=== PATIENT | female | born 1945 | race American Indian/Alaskan Native ===

== ENCOUNTER 2016-12-12 12:13 | Outpatient (CLI) | payer MEDICARE ==
--- NOTE | 2016-12-12 15:01 | Mammography Report ---
BILATERAL DIGITAL SCREENING MAMMOGRAM with CAD and RIGHT BREAST ULTRASOUND: 12/12/16 CLINICAL: Right breast mass. COMPARISON:None. FINDINGS: The breasts are extremely dense which limits the sensitivity of mammography. A right outer posterior mass with suspicious calcifications is identified on both views. The mass is partially included and measures at least 4 cm in diameter. It correlates with the palpable mass. There is architectural distortion associated with the mass.The left breast is negative.. Ultrasound of the right breast (including all four quadrants and the retroareolar area) was performed and demonstrated a solid heterogeneous hypoechoic mass at 8 o'clock 6 cm from the nipple. It measures at least 3.6 x 2.8 x 2.9 cm. A second mass at 10 o'clock 8 cm from the nipple measures 1.3 x 1.0 x 0.4 cm as. Ultrasound of the right axilla demonstrates at least one small suspicious lymph node with no central fat. IMPRESSION: A highly suspicious palpable right breast mass measuring at least 3.6 cm and possibly larger. One suspicious right axillary lymph node. Negative left breast. BI-RADS CATEGORY: 5 - - Highly Suggestive of Malignancy RECOMMENDATION: Ultrasound guided needle core biopsy of the right breast and ultrasound guided needle core biopsy of a right axillary lymph node. I discussed the findings and the recommendation for needle core biopsy with the patient and her niece at the time of the examination. ACR BI-RADS MAMMOGRAPHIC CODES: 0 = Needs additional imaging evaluation; 1 = Negative; 2 = Benign; 3 = Probably benign; 4 = Suspicious; 5 = Malignant; 6 = Known biopsy-proven malignancy COMMENT: 1. Dense breast tissue, i.e., adenosis, fibrocystic changes, etc., may obscure an underlying neoplasm. 2. Approximately 10% of cancers are not detected with mammography. 3. A negative mammography report should not delay biopsy if a clinically suspicious mass is present. COMMENT: Patient follow-up letters are generated by our [employer] application.
--- NOTE | 2016-12-12 15:02 | Mammography Report ---
BONE DEXA:12/12/16 12:13:00 CLINICAL: Postmenopausal. No comparison. TECHNIQUE: Two site bone DEXA performed on an Hologic scanner. FINDINGS: The average BMD of the lumbar spine L1-L4 is 0.923g/cm squared with a T-score of -2.1 and a Z-score of +0.5. The average BMD of the left hip is 0.681g/cm squared with a T-score of -2.2 and a Z-score of -1.0. IMPRESSION: WHO classification: Osteopenia with increased fracture risk based on spine and left hip measurements. RECOMMENDATION: Clinical correlation and routine screening. DEFINITIONS: BMD = Bone Mineral Density T-score = BMD related to mean peak bone mass of young adult (mean expressed in Standard Deviation) Z-score = Age matched BMD expressed in SD World Health Organization (WHO) Diagnostic Criteria Normal T-score > -1 SD Osteopenia T-score between -1 and -2.4 SD Osteoporosis T-score -2.5 SD or below NOTE: BMD is not the only risk factor for fracture. One should also consider factors such as the patient's age, risk of falling, previous osteoporotic fracture, family history of osteoporotic fractures, current smoker, and low body weight. Z-scores are not calculated if >80 years of age.
== END 2016-12-12 12:14 | disposition home or self-care (01) ==
LOC: SPVWC 12:13
PROVIDERS: ATTEND Family Medicine
DX: Z12.31 Encounter for screening mammogram for malignant neoplasm of breast (principal); M85.88 Other specified disorders of bone density and structure, other site; N63.10 Unspecified lump in the right breast, unspecified quadrant; Z78.0 Asymptomatic menopausal state
CPT/HCPCS: 76641; 77080; G0202; 77067

== ENCOUNTER 2016-12-23 13:25 | Outpatient (CLI) | payer MEDICARE ==
--- NOTE | 2016-12-23 15:03 | Mammography Report ---
RIGHT DIGITAL DIAGNOSTIC MAMMOGRAM: 12/23/16 13:25:00 CLINICAL: For clip placement immediately status post ultrasound biopsy. COMPARISON:12/12/16 FINDINGS: A biopsy clip is now identified at the margin of the large mobile outer breast mass. IMPRESSION: Concordant clip placement status post ultrasound biopsy. BI-RADS CATEGORY: 5 - - Highly Suggestive of Malignancy Pathology pending.
--- NOTE | 2016-12-23 15:57 | Ultrasound Report ---
ULTRASOUND GUIDED NEEDLE CORE BIOPSY WITH CLIP PLACEMENT RIGHT BREAST AND ULTRASOUND GUIDED NEEDLE CORE BIOPSY OF A RIGHT AXILLARY LYMPH NODE : 12/23/16 CLINICAL: Right breast mass and a suspicious enlarged right axillary lymph node. COMPARISON :12/12/16 FINDINGS: The procedure was explained to the patient and informed consent was obtained. Ultrasound demonstrated the previously described large outer right breast mass. The skin was prepped with Betadine and anesthetized with 1% lidocaine. Ultrasound needle core biopsy was performed through a small dermatotomy using ultrasound guidance, 2% lidocaine with epinephrine for deep anesthesia and a 14-gauge Achieve biopsy device. 3 cores were obtained and placed in formalin. A localizer clip was deployed within the lesion. The skin in the axilla was prepped with Betadine and anesthetized with 1% lidocaine. Ultrasound guided needle core biopsy of a lymph node was performed through a small dermatotomy using 2% lidocaine with epinephrine for deep anesthesia and a 18-gauge Achieve biopsy device. 2 samples were obtained and placed in formalin. A clip was deployed within the lymph node. Hemostasis was obtained at both sites with minimal pressure and sterile dressings were applied. The patient tolerated the procedure well and there were no apparent complications. She was discharged in good condition and was given instructions for wound care and followup. IMPRESSION: Uncomplicated ultrasound-guided needle core biopsy of a right breast mass and uncomplicated needle core biopsy of right axillary lymph node.
== END 2016-12-23 13:26 | disposition home or self-care (01) ==
LOC: SPVWC 13:25
PROVIDERS: ATTEND Family Medicine
DX: N63.10 Unspecified lump in the right breast, unspecified quadrant (principal)
CPT/HCPCS: 19083; 38525; 88305; 88307; 88361; G0206

== ENCOUNTER 2017-01-08 07:45 | Outpatient (CLI) | payer MEDICARE ==
--- NOTE | 2017-01-08 14:47 | PET Report ---
PET/CT:01/08/17 07:45:00 CLINICAL: Newly diagnosed right breast cancer. Status post right ultrasound guided needle breast biopsy 12/23/16 with pathologic diagnosis of invasive carcinoma of type. Absent guided right axillary lymph node biopsy on the same day was positive for metastatic carcinoma. RADIOPHARMACEUTICAL: 12.35mCi F18-FDG. COMPARISON: None. TECHNIQUE- Following intravenous injection of F-18 FDG and an approximately 60 minute uptake period, CT and PET images from the mid skull to the upper thighs were acquired with the patient in the fasted state. No contrast was administered. The CT protocol used for this PET CT study is designed for attenuation correction and anatomic localization of PET abnormalities. This drywall hanger helper CT is not desired to produce and cannot replace, zrczf-or-kss-art diagnostic CT scans with specific imaging protocols for different body parts and indications. Plasma glucose the time of this test: 148g/dl. The standardized uptake values (SUV) are normalized to patient body weight and indicate the highest activity concentration (SUV max) in a given disease site. FINDINGS: Brain--Physiologic FDG uptake in the visualized regions of the brain. Neck--Physiologic FDG uptake in the nasopharynx. Chest--A poorly defined FDG avid right breast mass with SUV 5.6. Portions of the margins of the mass are obscured. It measures at least 4.2 cm. There is a superficial biopsy clip near the skin. Physiologic FDG uptake in mediastinal blood pool and myocardium. Lungs--No abnormal uptake. No pulmonary nodule or mass. Pleura/pericardium--No abnormal uptake. However, a large pericardial effusion. Thoracic nodes--No abnormal uptake. No abnormal FDG uptake at the known right axillary liz metastasis. There is a right axillary biopsy clip with a small lymph node adjacent to it. Hepatobiliary--No abnormal uptake. Liver background SUV mean, as a reference for comparing FDG studies, is 2.9. No liver mass. A benign right hepatic cyst measures 1.6 cm. Spleen--No abnormal uptake. Pancreas--No abnormal uptake. Adrenal Glands--No abnormal uptake. Kidneys/Ureters/Bladder--No abnormal uptake. Abdominopelvic Nodes--No abnormal uptake. Bowel/Peritoneum/Mesentery--No abnormal uptake. Physiologic uptake in small and large bowel. Pelvic organs--No abnormal uptake. Bones/Soft Tissues--No abnormal uptake. No suspicious bone lesions. A benign hemangioma of the T10 vertebral body. IMPRESSION-1. FDG avid right breast cancer and a single right axillary liz metastasis with no FDG uptake. 2. No evidence of pulmonary, hepatic or skeletal metastasis. 3. A large pericardial effusion.
== END 2017-01-08 07:46 | disposition home or self-care (01) ==
LOC: PET 07:45
PROVIDERS: ATTEND Surgery
DX: C79.89 Secondary malignant neoplasm of other specified sites (principal); C50.511 Malignant neoplasm of lower-outer quadrant of right female breast; I31.3 Pericardial effusion (noninflammatory); K76.89 Other specified diseases of liver; D18.09 Hemangioma of other sites
CPT/HCPCS: 78815; 82962; A9552

== ENCOUNTER 2017-05-14 12:11 | Outpatient (CLI) | payer MEDICARE ==
--- NOTE | 2017-05-15 11:47 | PET Report ---
PET/CT:05/14/17 12:11:00 CLINICAL: Right breast cancer restaging. RADIOPHARMACEUTICAL: 14.8mCi F18-FDG. COMPARISON: 01/08/17 PET/CT TECHNIQUE- Following intravenous injection of F-18 FDG and an approximately 60 minute uptake period, CT and PET images from the mid skull to the upper thighs were acquired with the patient in the fasted state. No contrast was administered. The CT protocol used for this PET CT study is designed for attenuation correction and anatomic localization of PET abnormalities. This automotive glass technician CT is not desired to produce and cannot replace, xtavm-hq-anz-art diagnostic CT scans with specific imaging protocols for different body parts and indications. Plasma glucose at the time of this test: 95g/dl. The standardized uptake values (SUV) are normalized to patient body weight and indicate the highest activity concentration (SUV max) in a given disease site. FINDINGS: Brain--Physiologic FDG uptake in the visualized regions of the brain. Neck--Physiologic FDG uptake . Chest--The previously described FDG avid right breast mass is smaller and less well-defined with SUV 3.0 compared to 5.4 on the last exam. Physiologic FDG uptake in mediastinal blood pool and myocardium. A very large pericardial effusion is unchanged compared to prior exam. Lungs--No abnormal uptake. No pulmonary nodule or mass. Pleura/pericardium--No abnormal uptake. Thoracic nodes--No abnormal uptake. Hepatobiliary--No abnormal uptake. Liver background SUV mean, as a reference for comparing FDG studies, is 2.5 compared to 2.9 on the last exam. Stable 1.6 cm right hepatic cyst. No liver mass. Spleen--No abnormal uptake. Pancreas--No abnormal uptake. Adrenal Glands--No abnormal uptake. Kidneys/Ureters/Bladder--No abnormal uptake. Abdominopelvic Nodes--No abnormal uptake. Bowel/Peritoneum/Mesentery--No abnormal uptake. Pelvic organs--No abnormal uptake. Bones/Soft Tissues--No abnormal uptake. No suspicious bone lesions. IMPRESSION- 1. Partial response to therapy with decrease size and decreased FDG uptake in the known right breast cancer. 2. No evidence of pulmonary, hepatic or skeletal metastasis. 3. Stable large pericardial effusion.
== END 2017-05-14 12:12 | disposition home or self-care (01) ==
LOC: PET 12:11
PROVIDERS: ATTEND Internal Medicine Hematology & Oncology
DX: C50.411 Malignant neoplasm of upper-outer quadrant of right female breast (principal); I31.3 Pericardial effusion (noninflammatory); K76.89 Other specified diseases of liver
CPT/HCPCS: 78815; 82962; A9552

== ENCOUNTER 2017-08-20 07:26 | Outpatient (CLI) | payer MEDICARE ==
--- NOTE | 2017-08-21 10:41 | PET Report ---
PET/CT:08/20/17 07:26:00 CLINICAL: Breast cancer restaging. RADIOPHARMACEUTICAL: 13.485mCi F18-FDG. COMPARISON: 05/14/17 PET/CT TECHNIQUE- Following intravenous injection of F-18 FDG and an approximately 60 minute uptake period, CT and PET images from the mid skull to the upper thighs were acquired with the patient in the fasted state. No contrast was administered. The CT protocol used for this PET CT study is designed for attenuation correction and anatomic localization of PET abnormalities. This guinea pig breeder CT is not desired to produce and cannot replace, ppyhr-ny-gnj-art diagnostic CT scans with specific imaging protocols for different body parts and indications. Plasma glucose at the time of this test: 107g/dl. The standardized uptake values (SUV) are normalized to patient body weight and indicate the highest activity concentration (SUV max) in a given disease site. FINDINGS: Brain--Physiologic FDG uptake in the visualized regions of the brain. Neck--Physiologic FDG uptake . Chest--The FDG avid right breast cancer measures approximately 3.5 x 2.7 cm with SUV 3.6 compared to 3.0 on the last exam. The margins are better defined on this exam but is not significantly changed in size compared to the last exam. Physiologic FDG uptake in mediastinal blood pool and myocardium. Stable large pericardial effusion. Lungs--No abnormal uptake. No pulmonary nodule or mass. Pleura/pericardium--No abnormal uptake. Thoracic nodes--No abnormal uptake. A right axillary localizer clip correlates with the known right axillary liz metastasis. However, the lymph node has nearly completely disappeared and there is no FDG uptake. Hepatobiliary--No abnormal uptake. Liver background SUV mean, as a reference for comparing FDG studies, is 1.9 compared to 2.0 on the last exam. No liver mass. Spleen--No abnormal uptake. Pancreas--No abnormal uptake. Adrenal Glands--No abnormal uptake. Kidneys/Ureters/Bladder--No abnormal uptake. Abdominopelvic Nodes--No abnormal uptake. Bowel/Peritoneum/Mesentery--No abnormal uptake. Pelvic organs--No abnormal uptake. Bones/Soft Tissues--No abnormal uptake. No suspicious bone lesion. A stable benign hemangioma in the T10 vertebral body. IMPRESSION- Stable disease. Stable large pericardial effusion.
== END 2017-08-20 07:27 | disposition home or self-care (01) ==
LOC: PET 07:26
PROVIDERS: ATTEND Internal Medicine Hematology & Oncology
DX: C50.411 Malignant neoplasm of upper-outer quadrant of right female breast (principal); I31.3 Pericardial effusion (noninflammatory); C79.89 Secondary malignant neoplasm of other specified sites; D18.09 Hemangioma of other sites; K76.89 Other specified diseases of liver
CPT/HCPCS: 78815; 82962; A9552

== ENCOUNTER 2017-11-05 07:26 | Outpatient (CLI) | payer MEDICARE ==
--- NOTE | 2017-11-05 11:44 | PET Report ---
PET/CT:11/05/17 07:26:00 CLINICAL: Breast cancer restaging. RADIOPHARMACEUTICAL: 12.807mCi F18-FDG. COMPARISON: 04/22/17 PET/CT TECHNIQUE- Following intravenous injection of F-18 FDG and an approximately 60 minute uptake period, CT and PET images from the mid skull to the upper thighs were acquired with the patient in the fasted state. No contrast was administered. The CT protocol used for this PET CT study is designed for attenuation correction and anatomic localization of PET abnormalities. This surveillance sensor officer CT is not desired to produce and cannot replace, krtur-ts-leo-art diagnostic CT scans with specific imaging protocols for different body parts and indications. Plasma glucose at the time of this test: 109g/dl. The standardized uptake values (SUV) are normalized to patient body weight and indicate the highest activity concentration (SUV max) in a given disease site. FINDINGS: Brain--Physiologic FDG uptake in the visualized regions of the brain. Neck--Physiologic FDG uptake in mucosal structures. No mass or lymphadenopathy. Chest--The known right breast cancer measures approximately 4.0 x 3.0 cm with SUV 5.1 compared to 3.5 x 2.7 cm in SUV 3.6 on the last exam. Physiologic FDG uptake in mediastinal blood pool and myocardium. Lungs--No abnormal uptake. No pulmonary nodule or mass. Pleura/pericardium--No abnormal uptake. Stable large pericardial effusion. Small bilateral pleural effusions. Thoracic nodes--No abnormal uptake. Hepatobiliary--No abnormal uptake. Liver background SUV mean, as a reference for comparing FDG studies, is 2.8 compared to 1.9 on the last exam. Stable 1.6 cm right posterior hepatic cyst. No liver mass. Spleen--No abnormal uptake. Pancreas--No abnormal uptake. Adrenal Glands--No abnormal uptake. Kidneys/Ureters/Bladder--No abnormal uptake. Abdominopelvic Nodes--No abnormal uptake. Bowel/Peritoneum/Mesentery--No abnormal uptake. Pelvic organs--No abnormal uptake. Bones/Soft Tissues--No abnormal uptake. A stable benign hemangioma of the T10 vertebral body. No suspicious bone lesions. IMPRESSION-Moderate increased FDG uptake in the right breast cancer but otherwise unchanged exam. No other lesions. Stable large pericardial effusion. New small bilateral pleural effusions but no evidence of pulmonary metastasis.
== END 2017-11-05 07:27 | disposition home or self-care (01) ==
LOC: PET 07:26
PROVIDERS: ATTEND Internal Medicine Hematology & Oncology
DX: C50.411 Malignant neoplasm of upper-outer quadrant of right female breast (principal); I31.3 Pericardial effusion (noninflammatory)
CPT/HCPCS: 78815; 82962; A9552

== ENCOUNTER 2018-03-16 10:12 | Outpatient (CLI) | payer MEDICARE ==
--- NOTE | 2018-03-16 11:10 | Mammography Report ---
BILATERAL DIGITAL DIAGNOSTIC MAMMOGRAM with CAD: 03/16/18 10:12:00 CLINICAL: Right breast cancer treated with oral chemotherapy. COMPARISON:12/23/16 and 12/12/16 FINDINGS: The breasts are extremely dense which limits the sensitivity of mammography. Bilateral skin thickening and increased breast density is apparently related to a paucity of body fat and chronic renal disease. The right breast is smaller than on prior exams and there is greater skin retraction at the known cancer.The lower outer posterior mass appears smaller but is not entirely included on either view. Increased calcifications within the mass. No new mass, architectural distortion or suspicious calcifications. IMPRESSION: A positive response to oral chemotherapy with decreased size of right breast mass.Negative left breast. BI-RADS CATEGORY: 6 -- Known Cancer RECOMMENDATION: Bilateral mammogram in one year. ACR BI-RADS MAMMOGRAPHIC CODES: 0 = Needs additional imaging evaluation; 1 = Negative; 2 = Benign; 3 = Probably benign; 4 = Suspicious; 5 = Malignant; 6 = Known biopsy-proven malignancy COMMENT: 1. Dense breast tissue, i.e., adenosis, fibrocystic changes, etc., may obscure an underlying neoplasm. 2. Approximately 10% of cancers are not detected with mammography. 3. A negative mammography report should not delay biopsy if a clinically suspicious mass is present. COMMENT: Patient follow-up letters are generated by our [employer] application.
--- NOTE | 2018-03-16 13:11 | Ultrasound Report ---
RIGHT BREAST ULTRASOUND: 03/16/18 10:12:00 CLINICAL: Right breast cancer treated with oral chemotherapy COMPARISON: 12/12/16 FINDINGS: Ultrasound of the right breast(including all four quadrants and the retroareolar area) was performed and demonstrated a complex oval palpable mobile mass at 7 o'clock approximately 3 cm from the nipple. It measures 4.5 x 2.2 x 2.3 cm compared to an original measurement of 3.6 x 2.8 x 2.9 cm. Malignant calcifications are identified in a large portion of the mass and is solid portion of the mass measures approximately 3.1 x 2.0 x 2.2 cm. The rest of the mass is more hypoechoic or anechoic and may represent areas of necrosis. A solid slightly irregular hypoechoic mass at 9 o'clock 5 cm from the nipple measures 9 x 2 x 7 mm and correlates with the mass described to be at 10 o'clock on 8 cm from the nipple measuring 10 x 13 x 4 mm. Ultrasound of the right axilla demonstrated several lymph nodes with small fatty tejal. The largest measures 9 mm. IMPRESSION: A 4.5 x 2.2 x 2.3 cm known cancer of the right breast. Given challenges in reproducing measurements and the mobile character of the mass, the mass has not changed significantly in size compared to the original exam. A second mass at 9 o'clock 5 cm from the nipple appears to correlate with the previously identified mass at 10 o'clock 8 cm from the nipple and this 9 mm mass is smaller. BI-RADS 6 -- Known Cancer
== END 2018-03-16 10:13 | disposition home or self-care (01) ==
LOC: SPVWC 10:12
PROVIDERS: ATTEND Surgery
DX: C50.411 Malignant neoplasm of upper-outer quadrant of right female breast (principal)
CPT/HCPCS: 77066

== ENCOUNTER 2018-07-29 06:38 | Outpatient (CLI) | payer MEDICARE ==
--- NOTE | 2018-07-29 14:09 | PET Report ---
PET/CT:07/29/18 06:38:00 CLINICAL: Breast cancer restaging. Right breast cancer treated with oral chemotherapy. RADIOPHARMACEUTICAL: 13.31mCi F18-FDG. COMPARISON: 02/25/18 PET/CT TECHNIQUE- Following intravenous injection of F-18 FDG and an approximately 60 minute uptake period, CT and PET images from the mid skull to the upper thighs were acquired with the patient in the fasted state. No contrast was administered. The CT protocol used for this PET CT study is designed for attenuation correction and anatomic localization of PET abnormalities. This boat hoist operator helper CT is not desired to produce and cannot replace, aeyev-ij-rig-art diagnostic CT scans with specific imaging protocols for different body parts and indications. Plasma glucose at the time of this test: 130g/dl. The standardized uptake values (SUV) are normalized to patient body weight and indicate the highest activity concentration (SUV max) in a given disease site. FINDINGS: Brain--Physiologic FDG uptake in the visualized regions of the brain. Neck--Physiologic FDG uptake in mucosal structures. No mass or lymphadenopathy. Benign uptake in left neck musculature. Chest--Physiologic FDG uptake in mediastinal blood pool and myocardium. A moderate-sized pericardial effusion has decreased significantly in size compared to previous exams. The known right breast cancer measures 2.7 x 2.8 cm with SUV 5.6 compared to 2.8 x 1.9 cm and SUV 3.9 on the last exam. Lungs--No abnormal uptake. No pulmonary nodule or mass. Pleura/pericardium--No abnormal uptake. Thoracic nodes--No abnormal uptake. Hepatobiliary--No abnormal uptake. Liver background SUV mean, as a reference for comparing FDG studies, is 2.5 compared to 2.0 on the last exam. Benign hepatic cysts. No liver mass. Spleen--No abnormal uptake. Pancreas--No abnormal uptake. Adrenal Glands--No abnormal uptake. Kidneys/Ureters/Bladder--No abnormal uptake. Abdominopelvic Nodes--No abnormal uptake. Bowel/Peritoneum/Mesentery--No abnormal uptake. Pelvic organs--No abnormal uptake. Bones/Soft Tissues--No abnormal uptake and no suspicious bone lesion. Stable T5 mid wedge compression fracture. No new fracture. Other findings: Benign uptake in the terminal ileum. IMPRESSION- 1. Slight increase size and slight increased FDG uptake in the right breast cancer. 2. No new disease.
== END 2018-07-29 06:39 | disposition home or self-care (01) ==
LOC: PET 06:38
PROVIDERS: ATTEND Internal Medicine Hematology & Oncology
DX: C50.411 Malignant neoplasm of upper-outer quadrant of right female breast (principal); K76.89 Other specified diseases of liver; S22.050A Wedge compression fracture of T5-T6 vertebra, initial encounter for closed fracture; X58.XXXA Exposure to other specified factors, initial encounter; Y93.89 Activity, other specified; Y92.89 Other specified places as the place of occurrence of the external cause; Y99.8 Other external cause status
CPT/HCPCS: 78815; 82962; A9552